=== PATIENT | male | born 1995 | race Caucasian/White ===

== ENCOUNTER 2025-01-22 09:36 | Day surgery (SDC) | payer OTHER ==
[~2025-01-22] VITALS: Ht 188 cm; Wt 93.8 kg
[~2025-01-22 09:36] MED LIST: LIDOCAINE 2% 100 MG/5 ML SDV (FOR ANES.) As Ordered ONE; MIDAZOLAM INJ 2 MG/2 ML VIAL As Ordered ONE; ONDANSETRON 4MG 2ML VIAL As Ordered ONE; ROCURONIUM BROMIDE 50MG/5ML VIAL As Ordered ONE; THERTAB52 PO; ceFAZolin SOD 2 GM IV ONCE IV ONE; dexAMETHasone 4 MG/ML 1 ML VIAL As Ordered ONE
[2025-01-22] MEDS: LR 1,000 ML IV SCH (10:50)
[2025-01-22] MEDS: ceFAZolin SOD 2 GM IV ONCE IV ONE (13:26)
[2025-01-22] MEDS: LIDOCAINE 1% SDV 30 ML VIAL As Ordered ONE (13:35)
[2025-01-22] MEDS ORDERED: ACETAMINOPHEN 1000MG/100ML IV BAG As Ordered ONE (13:40)
[2025-01-22] MEDS ORDERED: HYDROmorphone HCL 2 MG/ML 1 ML VIAL As Ordered ONE (13:43)
[2025-01-22] MEDS: HEPARIN SOD 5000 UNITS/ML 1 ML VIAL/SYRINGE SQ ONE (14:06)
[2025-01-22] MEDS ORDERED: SUGAMMADEX SODIUM 200 MG/2 ML VIAL As Ordered ONE (15:04)
[2025-01-22] MEDS ORDERED: KETOROLAC 30 MG/ML 1 ML VIAL As Ordered ONE (15:05)
[2025-01-22] MEDS ORDERED: HYDROMORPHONE HCL 0.5 MG/0.5 ML SYRINGE IV PRN (15:50)
[2025-01-22] MEDS ORDERED: LR 1,000 ML IV SCH (15:50)
[2025-01-22] MEDS ORDERED: ONDANSETRON 4MG 2ML VIAL IV PRN (15:50)
[2025-01-22 17:45] VITALS: BP 135/78; TEMP 97.7; O2SAT 99
== END 2025-01-22 18:04 | disposition home or self-care (01) ==
LOC: M SDC 09:36
PROVIDERS: ATTEND Surgery
DX: K40.90 Unilateral inguinal hernia, without obstruction or gangrene, not specified as recurrent (principal); Z30.2 Encounter for sterilization; K21.9 Gastro-esophageal reflux disease without esophagitis
CPT/HCPCS: 49650; 55250; 88302; C1781; J0131; J0665; J0690; J1100; J1171; J1885; J2250; J2405; J3010; S2900

== ENCOUNTER 2025-01-29 17:20 | Emergency (ER) | payer OTHER ==
[~2025-01-29] VITALS: Ht 188 cm; Wt 92.7 kg
[~2025-01-29 17:20] MED LIST changes: -LIDOCAINE 2% 100 MG/5 ML SDV (FOR ANES.) As Ordered ONE; -MIDAZOLAM INJ 2 MG/2 ML VIAL As Ordered ONE; -ONDANSETRON 4MG 2ML VIAL As Ordered ONE; -ROCURONIUM BROMIDE 50MG/5ML VIAL As Ordered ONE; -ceFAZolin SOD 2 GM IV ONCE IV ONE; -dexAMETHasone 4 MG/ML 1 ML VIAL As Ordered ONE
[2025-01-29 18:34] LABS: BASO # 0.0 10^3/uL (0.0-0.2); BASO % 0.4 % (0.0-1.0); EOS # 0.1 10^3/uL (0.0-0.5); EOS % 0.6 % (0.0-3.0); LYMPH # 2.0 10^3/uL (1.5-5.0); LYMPH % 18.2 % (24.0-44.0); MONO # 1.7 10^3/uL (0.0-0.8); MONO % 15.5 % (2.0-8.0); NEUTROPHILS # 7.2 10^3/uL (1.5-8.5); NEUTROPHILS % 64.9 % (36.0-66.0); PLATELET COUNT, AUTOMATED 260 10^3/uL (150-450)
[2025-01-29 18:42] LABS: ERYTHROCYTE SEDIMENTATION RATE 33 mm/hr (0-15)
[2025-01-29 19:00] LABS: ALT/SGPT 40 U/L (7.0-40); AST/SGOT 21 U/L (<34); CALCIUM LEVEL 9.2 MG/DL (8.5-10.1); CARBON DIOXIDE LEVEL 28 MMOL/L (20-31); CHLORIDE LEVEL 101 MMOL/L (98-107); CREATININE FOR GFR 0.87 MG/DL (0.70-1.30); GLOMERULAR FILTRATION RATE > 90.0 (>60); POTASSIUM SERUM 4.5 MMOL/L (3.5-5.1); SODIUM LEVEL 141 MMOL/L (136-145)
[2025-01-29 19:05] LABS: C REACTIVE PROTEIN QUANTITATIV 11.24 MG/DL (<1.0)
[2025-01-30 03:00] LABS: KETONE, URINE AUTO RFX NEGATIVE (NEGATIVE); LEUKOCYTE ESTERASE UR AUTO RFX NEGATIVE (NEGATIVE); MUCUS, URINE RFX SMALL (NEGATIVE); NITRITE, URINE AUTO RFX NEGATIVE (NEGATIVE); RBC, URINE AUTO RFX 0 /HPF (0-3); SQUAM EPITHELIAL CELL UR AURFX 0 /HPF (0-6); WBC, URINE AUTO RFX 0 /HPF (0-3)
[2025-01-30] MEDS ORDERED: ISOVUE-370 76% 100 ML VIAL As Ordered ONE (03:17)
[2025-01-30] MEDS: NS (Normal Saline) 0.9% 1,000 ML IV STA (05:35)
[2025-01-30] MEDS ORDERED: IBUP1TAB7 PO (07:31)
[2025-01-30] MEDS ORDERED: METH-1164 PO (07:31)
[2025-01-30] MEDS ORDERED: HOME MED LIST COMPLETE! XX SCH (07:35)
[2025-01-30 07:38] LABS: PLATELET COUNT, AUTOMATED 250 10^3/uL (150-450)
[2025-01-30] MEDS ORDERED: ACET-897 PO (08:03)
[2025-01-30 10:19] VITALS: BP 129/64; TEMP 98.7; O2SAT 97
== END 2025-01-30 10:23 | disposition home or self-care (01) ==
LOC: M ED 17:20
DX: L76.32 Postprocedural hematoma of skin and subcutaneous tissue following other procedure (principal); Z98.52 Vasectomy status; Z98.890 Other specified postprocedural states; Z79.1 Long term (current) use of non-steroidal anti-inflammatories (NSAID); Z79.899 Other long term (current) drug therapy
CPT/HCPCS: 72193; 76870; 80048; 80076; 81001; 83605; 84145; 85025; 85027; 85652; 86140; 87040; 93976; 96360; 96361; 99284; Q9967

== ENCOUNTER → 2025-04-02 | Outpatient (REF) | payer OTHER ==
[~2025-04-02] MED LIST changes: +ACET-897 PO; +IBUP1TAB7 PO; +METH-1164 PO
[2025-04-02 13:31] LABS: SEMEN APPEARANCE OPAQUE (OPAQUE); SEMEN VISCOSITY LIQUID (LIQUID); SEMEN VOLUME 2.9 ml (2.0-5.0); WBC CONCENTRATION <=1 M/ml (<=1 M/ml)
== END ==
LOC: M LAB REF 13:26
PROVIDERS: ATTEND Physician Assistant
DX: Z98.52 Vasectomy status (principal)